=== PATIENT | male | born 1990 | race Caucasian/White ===

== ENCOUNTER 2022-11-08 13:25 | Emergency (ER) | payer OTHER ==
[~2022-11-08] VITALS: Ht 185.4 cm; Wt 81.6 kg
[2022-11-08 13:37] VITALS: BP 138/65; PULSE 95; RESP 18; TEMP 98.6; O2SAT 96
[2022-11-08] MEDS ORDERED: NIRM1TAB PO (13:58)
[2022-11-08] MEDS ORDERED: ACET-10509 PO (13:58)
== END 2022-11-08 14:07 | disposition home or self-care (01) ==
LOC: MED 13:25
DX: U07.1 COVID-19 (principal); J45.909 Unspecified asthma, uncomplicated; Z79.899 Other long term (current) drug therapy
CPT/HCPCS: 99283

== ENCOUNTER 2023-01-25 18:17 | Emergency (ER) | payer OTHER ==
[~2023-01-25] VITALS: Ht 185.4 cm; Wt 68.0 kg
[~2023-01-25 18:17] MED LIST: ACET-10509 PO; NIRM1TAB PO
[2023-01-25 18:30] VITALS: BP 120/76; PULSE 84; RESP 18; TEMP 98.6; O2SAT 98
[2023-01-25 19:14] VITALS: BP 120/76; PULSE 84; RESP 18; TEMP 98.6; O2SAT 98
[2023-01-25 19:32] LABS: FLU A ANTIGEN negative (NEGATIVE)
[2023-01-25 19:33] LABS: FLU B ANTIGEN NEGATIVE (NEGATIVE)
== END 2023-01-25 19:15 | disposition home or self-care (01) ==
LOC: MED 18:17
DX: B34.9 Viral infection, unspecified (principal); Z20.822 Contact with and (suspected) exposure to COVID-19; J45.909 Unspecified asthma, uncomplicated; Z98.890 Other specified postprocedural states; Z79.899 Other long term (current) drug therapy
CPT/HCPCS: 99283

== ENCOUNTER 2023-05-02 17:54 | Emergency (ER) | payer OTHER ==
[~2023-05-02] VITALS: Ht 185.4 cm; Wt 68.5 kg
[2023-05-02 18:07] VITALS: BP 104/70; PULSE 105; RESP 18; TEMP 98.3; O2SAT 97
[2023-05-02] MEDS ORDERED: LORA1T1237 PO (19:21)
[2023-05-02] MEDS ORDERED: IBUP-2213 PO (19:21)
[2023-05-02] MEDS ORDERED: ONDA-188 PO (19:21)
[2023-05-02] MEDS: ONDANSETRON 4 MG ODT PO ONE (19:25)
[2023-05-02 20:32] LABS: FLU A ANTIGEN negative (NEGATIVE)
[2023-05-02 20:34] LABS: FLU B ANTIGEN POSITIVE (NEGATIVE)
[2023-05-02] MEDS ORDERED: TAM75 PO (20:36)
== END 2023-05-02 19:38 | disposition home or self-care (01) ==
LOC: MED 17:54
DX: J10.1 Influenza due to other identified influenza virus with other respiratory manifestations (principal); Z20.822 Contact with and (suspected) exposure to COVID-19; J45.909 Unspecified asthma, uncomplicated; Z79.899 Other long term (current) drug therapy; Z88.8 Allergy status to other drugs, medicaments and biological substances
CPT/HCPCS: 87426; 87804; 99283; Q0162

== ENCOUNTER 2023-06-16 19:11 | Emergency (ER) | payer OTHER ==
[~2023-06-16] VITALS: Ht 185.4 cm; Wt 68.9 kg
[~2023-06-16 19:11] MED LIST changes: +IBUP-2213 PO; +LORA1T1237 PO; +ONDA-188 PO; +TAM75 PO
[2023-06-16 19:57] VITALS: BP 100/71; PULSE 94; RESP 18; TEMP 97.8; O2SAT 97
[2023-06-16 21:24] LABS: FLU A ANTIGEN negative (NEGATIVE); FLU B ANTIGEN NEGATIVE (NEGATIVE)
[2023-06-17] MEDS: KETOROLAC 30 MG/ML VIAL IM ONE (00:24)
[2023-06-17] MEDS ORDERED: AMOX500C25 PO (00:48)
[2023-06-17] MEDS ORDERED: NAPR-54 PO (00:48)
== END 2023-06-17 01:07 | disposition home or self-care (01) ==
LOC: MED 19:11
DX: J06.9 Acute upper respiratory infection, unspecified (principal); Z20.822 Contact with and (suspected) exposure to COVID-19; Z79.899 Other long term (current) drug therapy
CPT/HCPCS: 87426; 87804; 96372; 99283; J1885